=== PATIENT | female | born 1950 | race Caucasian/White ===

== ENCOUNTER 2019-07-20 19:23 | Inpatient (IN) | payer MEDICARE ==
[~2019-07-20] VITALS: Ht 170.2 cm; Wt 72.7 kg
[2019-07-20 20:07] LABS: CLARITY,URINE CLEAR (Clear); COLOR,URINE YELLOW (Yellow); GLUCOSE, URINE NEGATIVE (Neg); KETONES,URINE NEGATIVE (Neg); LEUKOCYTE ESTERASE ,URINE NEGATIVE (Neg); NITRITES, URINE NEGATIVE (Neg); OCCULT BLOOD,URINE NEGATIVE (Neg); PH,URINE 5.5 (4.8-8.0); PROTEIN,URINE NEGATIVE (Neg); UROBILINOGEN,URINE 0.2 E.U/dL (0.2-1.0)
[2019-07-20 20:09] LABS: BASOPHILS # (AUTO) 0.1 X10'3 (0-0.2); BASOPHILS % (AUTO) 0.5 % (0-1); EOSINOPHILS # (AUTO) 0.2 X10'3 (0-0.9); EOSINOPHILS % (AUTO) 1.6 % (0-6); HEMATOCRIT 42.9 % (35.0-45.0); HEMOGLOBIN 14.6 g/dl (12.0-16.0); LYMPHOCYTES # (AUTO) 3.1 X10'3 (1.1-4.8); MEAN CORPUSCULAR HEMOGLOBIN 31.2 PG (27.0-31.0); MEAN CORPUSCULAR HGB CONC 34.1 g/dL (33.0-36.5); MEAN CORPUSCULAR VOLUME 91.6 FL (78-98); MEAN PLATELET VOLUME 9.7 FL (7.4-10.4); MONOCYTES # (AUTO) 0.6 X10'3 (0-0.9); MONOCYTES % (AUTO) 5.8 % (2-12); NEUTROPHILS # (AUTO) 7.1 X10'3 (1.8-7.7); NEUTROPHILS % (AUTO) 64.1 % (42-75); PLATELET COUNT 221 X10'3 (140-440); RED BLOOD COUNT 4.68 X10'6 (4.20-5.60); RED CELL DISTRIBUTION WIDTH 12.4 % (11.5-14.5); WHITE BLOOD COUNT 11.1 X10'3 (4.5-11.0)
[2019-07-20 20:09] LABS: UA COLLECTION TYPE CLN CATCH MIDSTREAM
[2019-07-20] MEDS ORDERED: ondansetron/PF 4mg/2ml inj IV ONE (20:10)
[2019-07-20 20:24] LABS: ALANINE AMINOTRANSFERASE 113 U/L (12-78); ALBUMIN 3.9 G/DL (3.4-5.0); ALBUMIN/GLOBULIN RATIO 1.2 (1.1-1.5); ALKALINE PHOSPHATASE 106 IU/L (46-116); ANION GAP 9 (8-16); ASPARTATE AMINO TRANSFERASE 39 U/L (10-37); BILIRUBIN,TOTAL 0.3 MG/DL (0.1-1.0); BLOOD UREA NITROGEN 16 MG/DL (7-18); BUN/CREATININE RATIO 21.3 (6.6-38.0); CALCIUM 8.8 MG/DL (8.5-10.1); CHLORIDE 105 MMOL/L (99-107); CREATININE 0.75 MG/DL (0.40-0.90); GLUCOSE 90 MG/DL (70-104); POTASSIUM 3.3 MMOL/L (3.5-5.1); SODIUM 142 MMOL/L (135-145); TOTAL PROTEIN 7.1 G/DL (6.4-8.2); eGFR 77 ML/MIN
[2019-07-20] MEDS ORDERED: fentaNYL/PF 50MCG/1 ML 2ML syringe IV ONE (20:35)
--- NOTE | 2019-07-20 20:46 | NUR ---
Patient to CT.
[2019-07-20 20:56] LABS: LIPASE 221 U/L (73-393)
--- NOTE | 2019-07-20 21:09 | NUR ---
Patient back from CT, Fentanyl given and patient is much more comfortably 2/10 abd pain
[2019-07-20] MEDS ORDERED: piperacillin/tazo 3.375gm/50ml 50 ML IV ONE (21:40)
[2019-07-20] MEDS ORDERED: levoFLOXACIN-Levaquin 750MG/D5 150 ML IV STA (21:41)
[2019-07-20] MEDS: normal saline 1000ml 1,000 ML IV SCH (21:41)
[2019-07-20] MEDS ORDERED: ringers solution, lacted 1,000 ML IV SCH (21:42)
[2019-07-20] MEDS ORDERED: fentaNYL/PF 50MCG/1 ML 2ML syringe IV PRN ×2 (21:45)
[2019-07-20] MEDS ORDERED: ondansetron/PF 4mg/2ml inj IV PRN ×2 (21:45→23:35)
[2019-07-20] MEDS ORDERED: morphine 4 MG/ML inj SYRINge IV PRN ×2 (21:45)
[2019-07-20] MEDS ORDERED: labetalol 20mg/4ml (5mg/ml) syringe IV PRN (21:45)
[2019-07-20] MEDS ORDERED: hydrALAZINE 20mg/ml inj. IV PRN (21:45)
[2019-07-20] MEDS ORDERED: HYDROmorphone 1 mg/ml syringe IV PRN (22:00)
--- NOTE | 2019-07-20 22:05 | NUR ---
gave report to ANTHONY Khan from OR.
--- NOTE | 2019-07-20 22:11 | NUR ---
Perparing patient for surgery with Dr. Muñoz.
[2019-07-20] MEDS ORDERED: NO HOME MEDS (22:15)
[2019-07-20] MEDS ORDERED: fentaNYL/PF 50MCG/1 ML 2ML syringe ONE (22:22)
[2019-07-20] MEDS ORDERED: midazolam 2 mg/2 ml injection ONE ×2 (22:22→23:43)
[2019-07-20] MEDS ORDERED: BUPIVAcaine/PF 2.5 mg/ml (0.25%) 30ml vial ONE (22:23)
[2019-07-20] MEDS ORDERED: rocuronium 10mg/ml inj IV ONE (22:23)
[2019-07-20] MEDS ORDERED: LIDOcaine 2% (20mg/ml) 5ml vial ONE (22:23)
[2019-07-20] MEDS ORDERED: propofol inj 20 ML IV ONE (22:23)
[2019-07-20] MEDS ORDERED: ondansetron/PF 4mg/2ml inj ONE (22:23)
[2019-07-20] MEDS ORDERED: glycopyrrolate 0.2mg/ml inj ONE (22:23)
--- NOTE | 2019-07-20 22:35 | NUR ---
Patient to be admitted to hospital per Dr. Muñoz.
[2019-07-20] MEDS ORDERED: ketorolac trometh. 30mg/ml inj. ONE (23:22)
[2019-07-20 23:40] VITALS: BP 143/90
--- NOTE | 2019-07-20 23:40 | NUR ---
Received from OR via SURGICAL BED, accompanied by Anesthesiologist DR. ANDERSON and report given by Anesthesiolgist. PT ARRIVED WITH O2 VIA MASK AT 10L IN PL[address]. PT AWAKE AND TALKING AND THEN BECAME VERY ANXIOUS WITH SOB AND STRIDOR, DR. ANDERSON CALLED BACK TO BEDSIDE WHILE ENCOURAGING SLOW DEEP BREATHING TO THE PT. VERSED 2MG GIVEN IVP PER DR. ANDERSON'S VERBAL ORDER TO CALM PT. PT BECAME RESTFUL WITH NORMAL RESP. WHEN AWOKE AGAIN WAS CALMER. DRESSING CDI. SCDS IN PLACE. TURCIOS WITH GOOD CSM. PULSES AND CONFIGURATION TECHNICIAN WNL
[2019-07-20 23:50] VITALS: BP 134/80
[2019-07-21] VITALS (12 sets, daily range): BP systolic 98–140; BP diastolic 41–79
--- NOTE | 2019-07-21 00:12 | NUR ---
Received report from roll clamp operator. Patient to follow shortly.
--- NOTE | 2019-07-21 00:20 | NUR ---
Report called to receiving nurse SAHIL CRUZ. Transferred via BED TO ROOM 358A. Belongings HAD 2 BAGS OF BELONGINGS THAT HE CARRIED TO THE ROOM. Special Issues communicated to receiving nurse. VSS ON 3L O2 VIA NC
--- NOTE | 2019-07-21 00:27 | NUR ---
Patient arrived to floor 5 mins ago accompanied by her Jagdeep and belongings.
[2019-07-21] MEDS ORDERED: dexamethasone sod phosphate 10mg/ml inj ONE (00:33)
[2019-07-21] MEDS ORDERED: sevoflurane 250ml liquid IH ONE (00:33)
[2019-07-21] MEDS: metroNIDAZOLE-Flagyl 500mg/NS 100 ML IV SCH ×3 (00:47→16:46)
--- NOTE | 2019-07-21 01:00 | NUR ---
left to go home and took all belongings with him. Patient does not have her cell phone as she forgot it at home. will return tomorrow morning.
[2019-07-21] MEDS: HYDROcodone/acetaminophen 10/325mg tab PO PRN ×3 (01:38→18:47)
[2019-07-21] MEDS: normal saline 1000ml 1,000 ML IV SCH ×3 (04:59→19:56)
--- NOTE | 2019-07-21 06:26 | NUR ---
Patient in room [facility]. I have received report from Rosa Maria CRUZ and had the opportunity to ask questions and assume patient care. Patient denies needs, resting, will continue to monitor.
[2019-07-21 06:29] LABS: BASOPHILS % (AUTO) 0.1 % (0-1); EOSINOPHILS % (AUTO) 0 % (0-6); HEMATOCRIT 39.7 % (35.0-45.0); HEMOGLOBIN 13.6 g/dl (12.0-16.0); LYMPHOCYTES # (AUTO) 0.8 X10'3 (1.1-4.8); LYMPHOCYTES % (AUTO) 7.4 % (21-51); MEAN CORPUSCULAR HEMOGLOBIN 31.4 PG (27.0-31.0); MEAN CORPUSCULAR HGB CONC 34.2 g/dL (33.0-36.5); MEAN CORPUSCULAR VOLUME 91.9 FL (78-98); MEAN PLATELET VOLUME 10.1 FL (7.4-10.4); MONOCYTES # (AUTO) 0.2 X10'3 (0-0.9); MONOCYTES % (AUTO) 1.4 % (2-12); NEUTROPHILS # (AUTO) 10.4 X10'3 (1.8-7.7); NEUTROPHILS % (AUTO) 91.1 % (42-75); PLATELET COUNT 204 X10'3 (140-440); RED BLOOD COUNT 4.32 X10'6 (4.20-5.60); RED CELL DISTRIBUTION WIDTH 12.6 % (11.5-14.5); WHITE BLOOD COUNT 11.5 X10'3 (4.5-11.0)
[2019-07-21 06:46] LABS: ALBUMIN 3.2 G/DL (3.4-5.0); ANION GAP 10 (8-16); BLOOD UREA NITROGEN 13 MG/DL (7-18); BUN/CREATININE RATIO 16.9 (6.6-38.0); CALCIUM 8.1 MG/DL (8.5-10.1); CHLORIDE 106 MMOL/L (99-107); CREATININE 0.77 MG/DL (0.40-0.90); GLUCOSE 144 MG/DL (70-104); POTASSIUM 3.8 MMOL/L (3.5-5.1); SODIUM 142 MMOL/L (135-145); TOTAL CARBON DIOXIDE 25.6 MMOL/L (24-32); eGFR 75 ML/MIN
--- NOTE | 2019-07-21 07:03 | NUR ---
Reported off to Hayley CRUZ
[2019-07-21] MEDS: levoFLOXACIN-Levaquin 750MG/D5 150 ML IV SCH (07:33)
[2019-07-21] MEDS ORDERED: benzocaine/menthol oral lozeng 1 EACH BOX MM PRN (12:00)
[2019-07-21] MEDS ORDERED: temazepam 15mg capsule PO PRN (17:10)
[2019-07-21] MEDS ORDERED: naproxen sodium 220mg tablet PO PRN (18:30)
--- NOTE | 2019-07-21 18:30 | NUR ---
Patient in room [facility]. I have received report from ANTHONY Wilson and had the opportunity to ask questions and assume patient care. Sybil requested [place] and was given after report
--- NOTE | 2019-07-21 18:52 | NUR ---
Problems reprioritized. Patient report given, questions answered & plan of care reviewed with Chencho CRUZ. Requested pain medication, will continue to monitor.
[2019-07-21] MEDS: lactobacillus rhamnosus 10,000 MMU CELLS/CAPSULE PO SCH (19:48)
[2019-07-22] MEDS: metroNIDAZOLE-Flagyl 500mg/NS 100 ML IV SCH ×2 (00:02→07:54)
[2019-07-22 01:47] VITALS: BP 131/72
[2019-07-22] MEDS: HYDROcodone/acetaminophen 10/325mg tab PO PRN ×2 (03:34→10:42)
[2019-07-22 06:03] LABS: BASOPHILS % (AUTO) 0.2 % (0-1); EOSINOPHILS % (AUTO) 0.4 % (0-6); HEMATOCRIT 34.3 % (35.0-45.0); HEMOGLOBIN 11.7 g/dl (12.0-16.0); LYMPHOCYTES # (AUTO) 1.8 X10'3 (1.1-4.8); LYMPHOCYTES % (AUTO) 23.7 % (21-51); MEAN CORPUSCULAR HEMOGLOBIN 31.6 PG (27.0-31.0); MEAN CORPUSCULAR VOLUME 93.1 FL (78-98); MEAN PLATELET VOLUME 9.9 FL (7.4-10.4); MONOCYTES # (AUTO) 0.6 X10'3 (0-0.9); MONOCYTES % (AUTO) 7.4 % (2-12); NEUTROPHILS # (AUTO) 5.3 X10'3 (1.8-7.7); NEUTROPHILS % (AUTO) 68.3 % (42-75); PLATELET COUNT 152 X10'3 (140-440); RED BLOOD COUNT 3.68 X10'6 (4.20-5.60); RED CELL DISTRIBUTION WIDTH 12.4 % (11.5-14.5); WHITE BLOOD COUNT 7.7 X10'3 (4.5-11.0)
[2019-07-22 06:28] LABS: ALBUMIN 2.8 G/DL (3.4-5.0); ANION GAP 11 (8-16); BLOOD UREA NITROGEN 8 MG/DL (7-18); BUN/CREATININE RATIO 12.7 (6.6-38.0); CALCIUM 7.4 MG/DL (8.5-10.1); CHLORIDE 110 MMOL/L (99-107); CREATININE 0.63 MG/DL (0.40-0.90); GLUCOSE 106 MG/DL (70-104); POTASSIUM 3.1 MMOL/L (3.5-5.1); SODIUM 144 MMOL/L (135-145); TOTAL CARBON DIOXIDE 23.4 MMOL/L (24-32); eGFR > 90 ML/MIN
--- NOTE | 2019-07-22 06:28 | NUR ---
Problems reprioritized. Patient report given, questions answered & plan of care reviewed with ANTHONY Wilson.
--- NOTE | 2019-07-22 06:30 | NUR ---
Patient in room [facility]. I have received report from Chencho CRUZ and had the opportunity to ask questions and assume patient care. Patient having vitals taken, will continue to monitor.
--- NOTE | 2019-07-22 07:08 | NUR ---
Patient has active bowel sounds and has passed flatulence twice this morning. Advanced patient to full liquids as written order per Dr. Muñoz. Will continue to monitor.
[2019-07-22 07:14] VITALS: BP 121/62
[2019-07-22] MEDS: lactobacillus rhamnosus 10,000 MMU CELLS/CAPSULE PO SCH (08:01)
[2019-07-22] MEDS: levoFLOXACIN-Levaquin 750MG/D5 150 ML IV SCH (09:14)
[2019-07-22 11:07] VITALS: BP 132/68
[2019-07-22] MEDS ORDERED: FLU VACC QS2019-20 36MOS UP/PF 60 MCG/0.5 ML SYRINGE IMVAC ONE (11:15)
--- NOTE | 2019-07-22 12:00 | NUR ---
Patient alert and oriented, received flu vaccine per request to left deltoid, IV removed per protocol with cannula intact, in personal clothes, at bedside. Patient's provided script and note for not flying from Dr. Muñoz. Patient's lap sites observed with no drainage, steri strips intact, band aides placed. Patient and state understanding of discharge and movement restrictions to keep surgical site safe. Patient's gathered all belongings and took with him at discharge.
== END 2019-07-22 12:00 | disposition home or self-care (01) | DRG 342 ==
LOC: ER 19:24 → PACU 23:00 → SUR 3N 07-21 00:30 → OBSVTOIN 07-21 16:00
PROVIDERS: ADMIT Surgery; ATTEND Surgery
PROC: 0DTJ4ZZ Resection of Appendix, Percutaneous Endoscopic Approach (ICD-10-PCS; principal; 2019-07-20 22:32)
DX: K35.80 Unspecified acute appendicitis (principal); K56.7 Ileus, unspecified; Z88.6 Allergy status to analgesic agent; Z79.899 Other long term (current) drug therapy
CPT/HCPCS: 36415; 74176; 80048; 80053; 81003; 82948; 83690; 85025; 85610; 87081; 88304; 93005; 96365; 96366; 96367; 96375; 99285; A4215; A4314; A4618; A7000; G0378; J1100; J1885; J1956; J2001; J2250; J2405; J2543; J2704; J3010; J3490; J7030; J7120; Q2037

== ENCOUNTER 2022-07-17 07:28 | Emergency (ER) | payer MEDICARE ==
[~2022-07-17] VITALS: Ht 170.2 cm; Wt 73.0 kg
[2022-07-17 07:28] VITALS: BP 138/93
[~2022-07-17 07:28] MED LIST: NO HOME MEDS
[2022-07-17] MEDS ORDERED: ibuprofen tablet 400 MG TABLET PO ONE (09:50)
== END 2022-07-17 12:49 | disposition home or self-care (01) ==
LOC: ER 07:29
DX: S92.202A Fracture of unspecified tarsal bone(s) of left foot, initial encounter for closed fracture (principal); M79.672 Pain in left foot; Z85.3 Personal history of malignant neoplasm of breast; Z98.890 Other specified postprocedural states; Z88.1 Allergy status to other antibiotic agents; Z88.8 Allergy status to other drugs, medicaments and biological substances; Z88.5 Allergy status to narcotic agent; W19.XXXA Unspecified fall, initial encounter; Y93.89 Activity, other specified; Y92.89 Other specified places as the place of occurrence of the external cause; Y99.8 Other external cause status
CPT/HCPCS: 73610; 73630; 99284; L4360